=== PATIENT | male | born 1950 | race Caucasian/White ===

== ENCOUNTER 2024-01-06 06:01 | Day surgery (SDC) | payer MEDICARE, OTHER, SELFPAY ==
[2024-01-06 06:48] VITALS: BP 152/73
[2024-01-06 07:24] LABS: PT 25.1 Sec (11.4-14.6)
[2024-01-06 07:24] LABS: Glucose - Point of Care 143 mg/dl (70-99)
--- NOTE | 2024-01-06 07:49 | ITS.CL.ICD ---
Addendum entered and electronically signed by Ralú Palomo MD 01/06/24 13:45:
A antibiotic pouch was employed in this case to optimally minimize risk for pocket infection.
Original Note:
Vice President Payment - ICD
Implantable Cardioverter Defibrillator
Procedure Report:
BiV / ICD GENERATOR REMOVAL / IMPLANT REPORT
Date of Procedure: January 06, 2024
Primary Care Physician: Dr. Bandar Antony
Primary Anglesmith Helper: Dr. Kee Nelson
PROCEDURES:
1. Removal of BiV / ICD Generator
2. BiV / ICD Generator Implant
INDICATION FOR PROCEDURE:
1. ICD at [facility]
2. Current CHF Class 1 and patient is on guideline directed medical therapy at maximal tolerated dose for greater 3 months
3. Diagnosis of CHF initially made over 9 months ago
4. Life expectancy is greater than one year
5. Primary prevention at initial implant
6. Primary prevention at this generator change
7. Explanted device has delivered appropriate therapy: No
8. Anticoagulation (Coumadin) dose reduced for this procedure
HISTORY: The patient is a 73-year-old man with a past medical history significant for a nonischemic cardiomyopathy status post BiV ICD placement, status post mechanical aortic valve replacement, hypertension, diabetes mellitus, and obesity who
presents for BiV generator change due to battery at [facility]. He has a right sided device due to prior left sided pocket infection. All lead data is stable. Coumadin dose was reduced in anticipation for the generator change and INR is under 2.5 this
morning.
ANTIBIOTIC: Ancef 3 g IV
SEDATION: Conscious sedation per anesthesia staff
DESCRIPTION OF PROCEDURE: 'Time-out' was called and confirmed. The patient was prepped and draped in sterile fashion. Lidocaine with epinephrine was used for local anesthesia. An incision was made along the previous incision and the device and
leads were carefully dissected from the pocket. Hemostasis was obtained with electrocautery. The leads were from the device header and tested using an external analyzer. The pocket was liberally irrigated with antibiotic solution. Once
testing (see below) showed adequate and stable function, the leads were connected to the generator header and the leads and generator were placed within the pocket. The pocket was closed in the typical fashion.
EXPLANTED ICD: Medtronic model [id number] serial number [id number] implanted 12/11/2015
IMPLANTS:
BiV / ICD: Medtronic model [id number], SN: [id number], Left Pectoral
EXISTING LEADS:
RA lead Medtronic 5076/45, SN: [id number] implanted: 12/11/2015
RV lead Medtronic 6935/55, SN: [id number] implanted: 12/11/2015
LV lead Medtronic [id number]/88, SN: [id number] implanted: 12/11/2015
DEVICE TESTING
Sensing: RA 2.9 mV, RV 20 mV,
Capture: RA 0.75 V@ 0.4 ms, RV 0.5 V@ 0.4 ms, LV 0.75 V@ 0.7ms
Ohms: RA 570, RV 589, LV 589
FINAL PROGRAMMING:
Lisandro Pacing: DDD 60-130ppm
Tachy parameters:
VF: 188 bpm, ATP while charging, Shock
VT: 150 bpm, Monitor
COMPLICATIONS: None
CONCLUSIONS:
1. Explant of BiV ICD at [facility]
2. Successful implant of BiV ICD generator.
3. In-office wound check in 1 week and device check in 10 days.
Copy to: Dr. Bandar Antony
--- NOTE | 2024-01-06 07:54 | W.ICD.CONTRA ---
Post ICD/RANGE ECOLOGIST-D
-
History of [place]?: No
LV Function
Left ventricular function study result?: Ejection Fraction >/= 40%
ACEI/ARB/ARNI
Patient already on ACEI/ARB/ARNI: Yes
Beta-Ashley
Patient already on Beta Ashley: Yes
[2024-01-06 09:07] VITALS: BP 123/62
[2024-01-06 10:02] VITALS: BP 141/67
[2024-01-06 10:09] VITALS: BP 109/69
== END 2024-01-06 10:58 | disposition home or self-care (01) ==
LOC: CATH 06:01
PROVIDERS: ATTENDING PHYSICIAN Internal Medicine Interventional Cardiology; FAMILY PHYSICIAN Family Medicine; OTHER PHYSICIAN Internal Medicine Cardiovascular Disease
DX: Z45.02 Encounter for adjustment and management of automatic implantable cardiac defibrillator (principal); I11.0 Hypertensive heart disease with heart failure; E66.9 Obesity, unspecified; E11.9 Type 2 diabetes mellitus without complications; Z95.2 Presence of prosthetic heart valve; I42.8 Other cardiomyopathies; Z79.01 Long term (current) use of anticoagulants
CPT/HCPCS: 33264; 82962; 85610; 93005; C1882